=== PATIENT | female | born 2000 | race Caucasian/White ===

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

== ENCOUNTER 2018-03-20 14:33 | Emergency (ER) | payer SELFPAY ==
[~2018-03-20] VITALS: Ht 165.1 cm; Wt 63.6 kg
[~2018-03-20 14:33] MED LIST: BIRTH CONTROL; CARDIZEM 30MG T30 MG PO; MONO-LINYAH 351 TAB PO
[2018-03-20] MEDS ORDERED: LOPRESSOR 550 MG/TAB PO (14:52)
[2018-03-20] MEDS ORDERED: ASPIRIN 81M81 MG/TA2 PO (14:52)
[2018-03-20 15:32] LABS: BASO % 0.4 % (0.0-2.0); EOS # 0.1 (0.0-0.7); EOS % 1.1 % (0-4.0); GRAN # 5.4 (1.4-6.5); GRAN % 68.2 % (42.2-75.2); HEMATOCRIT 39.2 % (35.0-45.0); HEMOGLOBIN 13.1 g/dl (12.0-15.0); LYMPH % 24.9 % (20.0-51.0); MEAN CELL VOLUME 91 fl (80.0-95.0); MEAN CORPUSCULAR HEMOGLOBIN 31 pg (26.0-32.0); MEAN CORPUSCULAR HGB CONC 33 g/dl (33.0-37.0); MEAN PLATELET VOLUME 10.2 fl (7.4-10.4); MONO # 0.4 (0.1-0.6); MONO % 5.1 % (1.7-9.3); PLATELET COUNT 267 K/mm3 (130-400); REDCELL DISTRIBUTION WIDTH-CV 13.1 % (11.5-14.5)
[2018-03-20 15:39] LABS: ALBUMIN 4.3 gm/dL (3.5-5.0); BILIRUBIN,TOTAL 0.9 mg/dL (0.0-1.0); CALCIUM 9.6 mg/dL (8.4-10.2); CREATININE, serum 0.57 mg/dL (0.52-1.25); POTASSIUM 3.2 mmol/L (3.4-5.0); TOTAL PROTEIN 7.6 gm/dL (6.4-8.2)
[2018-03-20 16:09] LABS: TSH w REFLEX 1.48 uIU/mL (0.465-4.680)
[2018-03-20 16:54] VITALS: BP 114/81; PULSE 108
== END 2018-03-20 17:00 | disposition home or self-care (01) ==
LOC: COL.ER 14:33
PROVIDERS: Family Medicine
DX: I47.1 Supraventricular tachycardia (principal); Z79.82 Long term (current) use of aspirin
CPT/HCPCS: J2060; J7030

== ENCOUNTER 2018-07-25 18:59 | Emergency (ER) | payer OTHER ==
[~2018-07-25] VITALS: Ht 162.6 cm; Wt 59.1 kg
[~2018-07-25 18:59] MED LIST changes: +ASPIRIN 81M81 MG/TA2 PO; +LOPRESSOR 550 MG/TAB PO
[2018-07-25 19:20] VITALS: TEMP 98.3
[2018-07-25] MEDS ORDERED: PREDNISONE20 MG PO (21:24)
[2018-07-25 21:44] VITALS: BP 107/77; PULSE 100
== END 2018-07-25 21:47 | disposition home or self-care (01) ==
LOC: COL.ER 18:59
DX: T78.2XXA Anaphylactic shock, unspecified, initial encounter (principal); F17.290 Nicotine dependence, other tobacco product, uncomplicated; Z79.82 Long term (current) use of aspirin
CPT/HCPCS: J0171; J2405; J2930; J7030